=== PATIENT | female | born 1990 | race Caucasian/White ===

== ENCOUNTER 2018-07-17 19:52 | Emergency (ER) | payer SELFPAY ==
[~2018-07-17] VITALS: Ht 167.6 cm; Wt 56.7 kg
[2018-07-17 20:01] VITALS: BP 119/71
== END 2018-07-17 20:36 | disposition home or self-care (01) ==
LOC: ED 20:00
DX: B34.9 Viral infection, unspecified (principal)
CPT/HCPCS: 71046; 99283